=== PATIENT | female | born 2000 | race Caucasian/White ===

== ENCOUNTER 2022-10-17 13:46 | Outpatient (CLI) | payer OTHER ==
[2022-10-19 03:09] LABS: HBsAG SCREEN Negative (Negative); HIV SCREEN 4TH GENERATION Non Reactive (Non Reactive)
[2022-10-19 05:12] LABS: HCV AB Non Reactive (Non Reactive)
== END 2022-10-17 13:47 | disposition home or self-care (01) ==
LOC: LAB.S 13:46
PROVIDERS: ATTEND Registered Nurse
DX: S61.032A Puncture wound without foreign body of left thumb without damage to nail, initial encounter (principal); Z77.21 Contact with and (suspected) exposure to potentially hazardous body fluids; Y99.9 Unspecified external cause status
CPT/HCPCS: 36415; 86803; 87340; 87389